=== PATIENT | male | born 1950 | race Caucasian/White ===

== ENCOUNTER 2017-03-01 08:34 | Emergency (ER) | payer BC, MEDICARE ==
--- NOTE | 2017-03-01 15:55 | ER ---
ADMIT: 03/01/2017 RM/LOC: [facility] MR#: [id number] [id number] [facility] [address] [place], [place] [id number] MAGUI SUTTON [address] [place] [address] Emergency Room Report SEX: M AGE: 66 : 1950 DATE: 03/01/2017 TIME: 0834 hours. Please refer to my T-sheet for complete H and P. HISTORY OF PRESENT ILLNESS: Briefly, the patient is a 66-year-old, who comes in and said this morning was up going to the bathroom. When he sat on the toilet, he had bright red blood clot come out, just one. He is having no pain. He has never had any problems. He had a colonoscopy about 7 or 8 years ago that was normal. Does have a family history of colon cancer, so he is concerned. He feels fine otherwise. Does admit to being constipated a couple days ago. PHYSICAL EXAMINATION: VITAL SIGNS: Stable. RECTAL: Shows no external hemorrhoids. Diffuse excoriation is noted around the anal verge, but no bleeding. He has a trace positive blood on the anal verge. EMERGENCY DEPARTMENT COURSE: CBC was normal. Chemistry was normal. I had to have a long discussion with him and he is ready for discharge. ASSESSMENT: Rectal bleeding x1 this morning, likely from internal hemorrhoids. PLAN: We are going to put him on Anusol HC suppositories. I recommended that he follow up with Dr. Duckworth and get a colonoscopy set up again and return if worse. Bull Moore MD/ yoni JOB #: [id number] CC: Bull Moore MD, Attending Physician Freddy Duckworth MD, Family Physician
== END 2017-03-01 09:55 | disposition home or self-care (01) ==
LOC: ER 08:34
DX: K64.8 Other hemorrhoids (principal); I10 Essential (primary) hypertension; J45.909 Unspecified asthma, uncomplicated; Z79.899 Other long term (current) drug therapy